=== PATIENT | female | born 1960 ===

== ENCOUNTER 2017-07-07 16:59 | Emergency (ER) | payer OTHER ==
[2017-07-07 17:20] VITALS: TEMP 98.5; O2SAT 100
[2017-07-07 18:10] LABS: APPEARANCE,URINE Cloudy; BILIRUBIN,URINE NEGATIVE (NEGATIVE); COLOR,URINE Yellow; GLUCOSE, URINE (UA) TRACE (NEGATIVE); KETONES,URINE TRACE (NEGATIVE); LEUKOCYTE ESTERASE ,URINE NEGATIVE (NEGATIVE); NITRATE,URINE POSITIVE (NEGATIVE); OCCULT BLOOD,URINE 1+ (NEG-TRACE)
[2017-07-07 18:11] LABS: BASOPHILS % (AUTO) 1 % (0-3); EOSINOPHILS % (AUTO) 0 % (0-9); HEMATOCRIT 44 % (35-47); MEAN CORPUSCULAR HGB CONC 34.2 gm/dl (32.0-36.0); MEAN CORPUSCULAR VOLUME 89 fL (81-99); MONOCYTES % (AUTO) 4.8 % (0-12); NEUTROPHILS % (AUTO) 85.4 % (37-80)
[2017-07-07] MEDS ORDERED: ASPIRIN 81 MG CHEWABLE CTB ONE (18:13)
[2017-07-07] MEDS: ASPIRIN 81 MG CHEWABLE CTB PO ONE (18:13)
[2017-07-07] MEDS ORDERED: TICAGRELOR 90 MG TAB PO ONE (18:20)
[2017-07-07] MEDS: TICAGRELOR 90 MG TAB PO ONE (18:20)
[2017-07-07] MEDS ORDERED: POTASSIUM CHLORIDE 2 MEQ/ML SOL IV ONE (18:22)
[2017-07-07] MEDS ORDERED: HEPARIN SODIUM 5000 U/ML SOL ONE (18:23)
[2017-07-07] MEDS ORDERED: METOPROLOL TARTRATE 5 MG/5 ML SOL IV ONE ×2 (18:26→18:35)
[2017-07-07] MEDS: SODIUM CHLORIDE 0.9% FLUSH 10 ML SOL IV PRN (18:27)
[2017-07-07] MEDS: METOPROLOL TARTRATE 5 MG/5 ML SOL IV ONE ×2 (18:27→18:36)
[2017-07-07] MEDS: HEPARIN SODIUM 5000 U/ML SOL IV ONE (18:31)
[2017-07-07 18:34] LABS: ALBUMIN 3.8 gm/dl (3.4-5.0); CALCIUM 9.1 mg/dl (8.5-10.1); THYROID STIMULATING HORMONE 1.158 uIU/ml (0.358-3.740)
[2017-07-07] MEDS: POTASSIUM CHLORIDE 2 MEQ/ML 60 MEQ, LIDOCAINE HCL 1% MDV 2 ML in SODIUM CHLORIDE 0.9% 1... IV ONE (18:34)
[2017-07-07 18:35] LABS: POTASSIUM 2.3 mMol/L (3.5-5.1)
[2017-07-07 18:37] VITALS: BP 155/107; PULSE 110; RESP 23
[2017-07-07] MEDS: LORAZEPAM 2 MG/ML 10ML MDV 2 MG/ML VIAL IV ONE (18:42)
[2017-07-07] MEDS ORDERED: LORAZEPAM 2 MG/ML SOL ONE (18:42)
== END 2017-07-07 18:57 | disposition short-term general hospital (02) ==
LOC: ED 16:59
DX: I21.02 ST elevation (STEMI) myocardial infarction involving left anterior descending coronary artery (principal); Z72.0 Tobacco use; Z72.89 Other problems related to lifestyle; R35.0 Frequency of micturition; R06.02 Shortness of breath; R07.9 Chest pain, unspecified
CPT/HCPCS: 36415; 71045; 80053; 81001; 84443; 84484; 85025; 87077; 87088; 87186; 93005; 99291; J1644; J2060; J3480; A9270-GY; J3490